=== PATIENT | female | born 1995 | race Two or more races ===

== ENCOUNTER 2021-11-08 04:25 | Inpatient (IN) | payer MEDICAID ==
[~2021-11-08] VITALS: Ht 157.5 cm; Wt 59.0 kg
[2021-11-08] MEDS ORDERED: CARBOPROST TROMETHAMINE 250 MCG/ML AMPUL IM PRN (05:45)
[2021-11-08] MEDS ORDERED: METHYLERGONOVINE MALEATE 0.2 MG/ML IM PRN (05:45)
[2021-11-08] MEDS ORDERED: NALOXONE HCL 0.4 MG/ML 1ML VIAL IM PRN (05:45)
[2021-11-08] MEDS ORDERED: BUTORPHANOL TARTRATE 2 MG/ML VIAL IV PRN (05:45)
[2021-11-08 06:00] LABS: CLARITY URINE CLEAR (CLEAR); COLOR URINE YELLOW (YELLOW); KETONES URINE NEGATIVE (NEGATIVE); LEUKOCYTE ESTERASE URINE TRACE (NEGATIVE); NITRITE URINE NEGATIVE (NEGATIVE); OCCULT BLOOD URINE NEGATIVE (NEGATIVE); PH URINE 6.5 (4.5-8.0); PROTEIN URINE NEGATIVE (NEGATIVE); SPECIFIC GRAVITY URINE 1.007 (1.005-1.030); UROBILINOGEN URINE 0.2 E.U./dL (0.2-1.0)
[2021-11-08 06:08] LABS: BASOPHILS % 0.3 % (0.0-2.0); EOSINOPHILS % 0.3 % (0.0-5.0); HEMATOCRIT. 33.2 % (36.0-48.0); HEMOGLOBIN. 12.2 g/dL (12.0-16.0); LYMPHOCYTES % 23.4 % (20.0-50.0); MEAN CORPUSCULAR HEMOGLOBIN 36.2 pg (28.0-32.0); MEAN CORPUSCULAR VOLUME 98.1 fL (81.0-99.0); MEAN PLATELET VOLUME 10.7 fl (7.4-10.4); PLATELET 179 x1000/uL (130-400); RED BLOOD CELL COUNT 3.38 mill/uL (4.2-5.4); RED CELL DISTRIBUTION WIDTH 14.3 % (11.6-14.6)
[2021-11-08 06:15] LABS: INR 0.9; PARTIAL THROMBOPLASTIN TIME 27.6 sec (23.4-31.0); PROTHROMBIN TIME 9.8 sec (9.6-11.0)
[2021-11-08 06:20] LABS: *AMPHETAMINES SCREEN URINE NEGATIVE (NEGATIVE); *BARBITURATES SCREEN URINE NEGATIVE (NEGATIVE); *BENZODIAZEPINES SCREEN URINE NEGATIVE (NEGATIVE); *COCAINE SCREEN URINE NEGATIVE (NEGATIVE); CANNABINOID URINE SCREEN NEGATIVE (NEGATIVE)
[2021-11-08 06:21] LABS: METHADONE URINE SCREEN NEGATIVE (NEGATIVE); OPIATES URINE SCREEN NEGATIVE (NEGATIVE); PHENCYCLIDINE URINE SCREEN NEGATIVE (NEGATIVE)
[2021-11-08] MEDS ORDERED: MISOPROSTOL 200MCG TABLET VG NR (06:30)
[2021-11-08] MEDS ORDERED: LIDOCAINE HCL 1% 20ML VIAL (Pyxis) INJ INFIL SCH (06:30)
[2021-11-08 06:40] LABS: HEPATITIS B SURFACE ANTIGEN NEGATIVE
[2021-11-08] MEDS ORDERED: MISOPROSTOL 100MCG TABLET VG SCH (07:15)
[2021-11-08] MEDS: LACTATED RINGERS 1,000 ML IV SCH ×2 (07:38→20:19)
[2021-11-08] MEDS: DEXT 5%/LR + PITOCIN 20UNITS/L 1,000 ML IV SCH ×2 (14:20→23:58)
[2021-11-08] MEDS ORDERED: FENTANYL CITRATE/PF 50MCG/ML 2ML VIAL ONE (16:27)
[2021-11-08] MEDS ORDERED: ROPIVACAINE HCL/PF EPIDURAL 200 ML EPI ONE (16:30)
[2021-11-08] MEDS ORDERED: BUPIVACAINE HCL/PF 0.25% (2.5MG/ML) 10ML ONE (16:30)
[2021-11-08] MEDS ORDERED: MINERAL OIL 30ML BOTTLE TOP NR (22:10)
[2021-11-08] MEDS ORDERED: ACETAMINOPHEN 325MG TABLET PO PRN (23:00)
[2021-11-09 01:20] VITALS: BP 97/55
[2021-11-09] MEDS ORDERED: RHO(D) IMMUNE GLOBULIN 300 MCG/SYR IM PRN (03:45)
[2021-11-09] MEDS ORDERED: IBUPROFEN 400MG TABLET PO PRN (03:45)
[2021-11-09] MEDS ORDERED: LANOLIN OINT 7GM TUBE TOP PRN (03:45)
[2021-11-09 04:00] VITALS: BP 90/53
[2021-11-09] MEDS ORDERED: DEXT 5%/LR + PITOCIN 20UNITS/L 1,000 ML IV SCH (04:00)
[2021-11-09] MEDS ORDERED: GLYCERIN/WITCH HAZEL LEAF MEDICATED PAD TOP PRN (05:15)
[2021-11-09] MEDS ORDERED: BENZOCAINE/LANOLIN/ALOE VERA SPRAY TOP PRN (05:15)
[2021-11-09] MEDS ORDERED: METHYLERGONOVINE MALEATE 0.2 MG/ML IM PRN (06:00)
[2021-11-09 07:25] VITALS: BP 94/57
[2021-11-09] MEDS: IBUPROFEN 800MG TABLET PO PRN ×2 (07:39→19:29)
[2021-11-09] MEDS: PRENATAL VIT/FE FUMARATE/FA TABLET PO SCH (07:39)
[2021-11-09 16:00] VITALS: BP 98/61
[2021-11-09 19:30] VITALS: BP 97/57
[2021-11-10 04:00] VITALS: BP 95/53
[2021-11-10 07:30] VITALS: BP 90/56
[2021-11-10 07:50] LABS: BASOPHILS % 0.5 % (0.0-2.0); EOSINOPHILS % 0.4 % (0.0-5.0); HEMATOCRIT. 28.5 % (36.0-48.0); HEMOGLOBIN. 10.2 g/dL (12.0-16.0); LYMPHOCYTES % 20.9 % (20.0-50.0); MEAN CORPUSCULAR HEMOGLOBIN 36.1 pg (28.0-32.0); MEAN CORPUSCULAR VOLUME 100.9 fL (81.0-99.0); MEAN PLATELET VOLUME 10.4 fl (7.4-10.4); MONOCYTES % 6.8 % (2.0-8.0); NEUTROPHILS % 71.4 % (40.0-76.0); PLATELET 169 x1000/uL (130-400); RED BLOOD CELL COUNT 2.82 mill/uL (4.2-5.4); RED CELL DISTRIBUTION WIDTH 14.5 % (11.6-14.6)
[2021-11-10] MEDS: PRENATAL VIT/FE FUMARATE/FA TABLET PO SCH (08:39)
[2021-11-10] MEDS: IBUPROFEN 800MG TABLET PO PRN (11:14)
== END 2021-11-10 13:10 | disposition home or self-care (01) | DRG 560 ==
LOC: OBSVTOIN 04:25 → 8 EST LDRP 04:25 → 8EST 11-09 00:30
PROVIDERS: ADMIT Obstetrics & Gynecology; ATTEND Obstetrics & Gynecology
PROC: 10E0XZZ Delivery of Products of Conception, External Approach (ICD-10-PCS; principal; 2021-11-08)
PROC: 3E0R3BZ Introduction of Anesthetic Agent into Spinal Canal, Percutaneous Approach (ICD-10-PCS; 2021-11-08)
PROC: 00HU33Z Insertion of Infusion Device into Spinal Canal, Percutaneous Approach (ICD-10-PCS; 2021-11-08)
PROC: 0W8NXZZ Division of Female Perineum, External Approach (ICD-10-PCS; 2021-11-08)
DX: O36.8130 Decreased fetal movements, third trimester, not applicable or unspecified (principal); Z37.0 Single live birth; O43.123 Velamentous insertion of umbilical cord, third trimester; Z20.822 Contact with and (suspected) exposure to COVID-19; O43.193 Other malformation of placenta, third trimester; Z3A.39 39 weeks gestation of pregnancy
CPT/HCPCS: 36415; 76805; 76818; 80305; 81003; 82947; 85025; 86592; 86703; 86762; 86850; 86900; 87340; 87426; 88307; 99281; G0378; J2590; J2795; J3010; J3490; J7120; A4315